=== PATIENT | female | born 1975 | race African-American/Black ===

== ENCOUNTER → 2019-12-09 | Outpatient (CLI) | payer OTHER ==
[~2019-12-09] MED LIST: ZOFRAN ODT4 MG PO
== END ==
LOC: RAD 11:03
DX: R05 Cough (principal)

== ENCOUNTER → 2020-06-23 | Outpatient (CLI) | payer OTHER | LOC: LAB 14:19 | PROVIDERS: ATTEND Family Medicine | DX: Z20.828 Contact with and (suspected) exposure to other viral communicable diseases (principal) ==